=== PATIENT | female | born 1955 | race African-American/Black ===

== ENCOUNTER 2017-09-04 08:05 | Inpatient (IN) | payer MEDICAID ==
[~2017-09-04] VITALS: Ht 167.6 cm; Wt 137.0 kg
[2017-09-04] MEDS ORDERED: MORPHINE SULFATE 4 MG/ML CPJ (NOT FOR IM USE) IV STA (08:54)
[2017-09-04] MEDS ORDERED: ONDANSETRON HCL 4MG/2ML VIAL IV STA (08:54)
[2017-09-04 09:33] LABS: CHLORIDE 108 mEq/L (98-107)
[2017-09-04 09:35] LABS: INR 1.1; PROTHROMBIN TIME 11.4 sec (9.4-11.6)
[2017-09-04 09:38] LABS: CARBON DIOXIDE 27 mEq/L (21-32)
[2017-09-04 09:39] LABS: BASOPHILS % 0.2 % (0.0-2.0); EOSINOPHILS % 6.5 % (0.0-5.0); HEMATOCRIT. 38.1 % (36.0-48.0); HEMOGLOBIN. 12.6 g/dL (12.0-16.0); LYMPHOCYTES % 21.3 % (20.0-50.0); MEAN CORPUSCULAR HEMOGLOBIN 28.5 pg (28.0-32.0); MEAN CORPUSCULAR VOLUME 86.1 fL (81.0-99.0); MEAN PLATELET VOLUME 10.7 fl (7.4-10.4); MONOCYTES % 5.8 % (2.0-8.0); NEUTROPHILS % 66.2 % (40.0-76.0); PLATELET 259 x1000/uL (130-400); RED BLOOD CELL COUNT 4.43 mill/uL (4.2-5.4); RED CELL DISTRIBUTION WIDTH 16.5 % (11.6-14.6)
[2017-09-04] MEDS ORDERED: POTASSIUM CHLORIDE INJ 40 MEQ in DEXT 5% WATER 250 ML IV NR (10:00)
[2017-09-04] MEDS ORDERED: POTASSIUM CHLORIDE 20MEQ TABLET SR PO NR (10:00)
[2017-09-04 10:15] LABS: GLUCOSE URINE NEGATIVE (NEGATIVE); KETONES URINE NEGATIVE (NEGATIVE); LEUKOCYTE ESTERASE URINE NEGATIVE (NEGATIVE); NITRITE URINE NEGATIVE (NEGATIVE); OCCULT BLOOD URINE 2+ (NEGATIVE); PROTEIN URINE NEGATIVE (NEGATIVE); SPECIFIC GRAVITY URINE 1.008 (1.005-1.030); UROBILINOGEN URINE 0.2 E.U./dL (0.2-1.0)
[2017-09-04] MEDS ORDERED: ONDANSETRON HCL 4MG/2ML VIAL IV PRN (10:15)
[2017-09-04] MEDS ORDERED: DIPHENHYDRAMINE 50MG/ML VIAL IV PRN (10:15)
[2017-09-04] MEDS ORDERED: GUAIFENESIN 200MG/10ML SUGAR FREE UDC PO PRN (10:15)
[2017-09-04] MEDS ORDERED: CLONIDINE 0.1MG TABLET PO PRN (10:15)
[2017-09-04] MEDS ORDERED: HYDROCODONE/ACETAMINOPHEN 5/325MG TABLET PO PRN (10:15)
[2017-09-04] MEDS ORDERED: DOCUSATE SODIUM 100MG CAPSULE PO PRN (10:15)
[2017-09-04] MEDS ORDERED: ACETAMINOPHEN 325MG TABLET PO PRN ×2 (10:15→21:45)
[2017-09-04] MEDS ORDERED: ENOXAPARIN 40MG/0.4ML SYR SUBCUT SCH (10:15)
[2017-09-04] MEDS ORDERED: NA PHOS,M-B/NA PHOS,DI-BA ENEMA 118ML PR PRN (10:15)
[2017-09-04] MEDS ORDERED: MAGNESIUM/ALUMINUM HYDROXIDE/SIMETHICONE 30ML UDC PO PRN (10:15)
[2017-09-04] MEDS ORDERED: IPRATROPIUM/ALBUTEROL 0.5-3(2.5)MG/3ML NEB INH PRN (10:15)
[2017-09-04] MEDS ORDERED: LORAZEPAM 2MG/ML CPJ IV PRN (10:15)
[2017-09-04 10:52] LABS: CLARITY URINE CLEAR (CLEAR); COLOR URINE PALE YELLOW (YELLOW)
[2017-09-04 12:00] VITALS: BP 130/77
[2017-09-04 12:12] VITALS: BP 130/77
[2017-09-04] MEDS ORDERED: ALBU2.5V13 IH (12:43)
[2017-09-04] MEDS ORDERED: ASPI-1159 PO (12:49)
[2017-09-04] MEDS ORDERED: ATEN50TA PO (12:50)
[2017-09-04] MEDS ORDERED: CLON0.1T PO (12:50)
[2017-09-04] MEDS ORDERED: FURO20TA4 PO (12:51)
[2017-09-04] MEDS ORDERED: METF500T4 PO (12:52)
[2017-09-04] MEDS ORDERED: GABA-531 PO (12:52)
[2017-09-04] MEDS ORDERED: OMEP20CA10 PO (12:53)
[2017-09-04] MEDS ORDERED: MULT-1146 PO (12:53)
[2017-09-04] MEDS ORDERED: DEXT 5%/0.45% NACL KCL 10MEQ/L 1,000 ML IV SCH (13:00)
[2017-09-04] MEDS: ENOXAPARIN 30MG/0.3ML SYR SUBCUT SCH ×2 (13:40→22:58)
[2017-09-04 15:32] LABS: TROPONIN I 0.26 ng/mL (0.00-0.04)
[2017-09-04 16:00] VITALS: BP 128/67
[2017-09-04] MEDS: HYDROMORPHONE HCL/PF 2MG/ML CPJ IV PRN ×2 (16:40→23:02)
[2017-09-04 20:00] VITALS: BP 145/75
[2017-09-04 23:26] LABS: TROPONIN I 0.34 ng/mL (0.00-0.04)
[2017-09-05] VITALS: BP 140/80
[2017-09-05] MEDS ORDERED: POTASSIUM CHLORIDE 20MEQ TABLET SR PO SCH
[2017-09-05 04:00] VITALS: BP 142/77
[2017-09-05] MEDS: HYDROMORPHONE HCL/PF 2MG/ML CPJ IV PRN (05:27)
[2017-09-05] MEDS: BLOOD SUGAR DIAGNOSTIC STRIP TEST SCH ×4 (07:40→20:39)
[2017-09-05 07:44] LABS: BASOPHILS % 0.3 % (0.0-2.0); EOSINOPHILS % 5.4 % (0.0-5.0); HEMATOCRIT. 37.6 % (36.0-48.0); HEMOGLOBIN. 12.4 g/dL (12.0-16.0); LYMPHOCYTES % 26.1 % (20.0-50.0); MEAN PLATELET VOLUME 10.6 fl (7.4-10.4); NEUTROPHILS % 62.2 % (40.0-76.0); PLATELET 254 x1000/uL (130-400); RED BLOOD CELL COUNT 4.42 mill/uL (4.2-5.4)
[2017-09-05] MEDS ORDERED: DEXTROSE 50% WATER 50ML SYRINGE IV PRN (07:45)
[2017-09-05 08:00] VITALS: BP 132/72
[2017-09-05 08:00] LABS: CARBON DIOXIDE 26 mEq/L (21-32); CHLORIDE 109 mEq/L (98-107); HDL CHOLESTEROL 44 mg/dL (40-59); LDL CHOLESTEROL 43 mg/dL (5-100); T4 FREE 1.31 ng/dL (0.76-1.46)
[2017-09-05] MEDS: INSULIN LISPRO 100 UNITS/ML SUBCUT SCH ×4 (08:10→20:38)
[2017-09-05] MEDS: OMEPRAZOLE 20MG CAPSULE EXTENDED RELEASE PO SCH (08:53)
[2017-09-05] MEDS: MULTIVITAMINS,THER W-MINERALS TABLET PO SCH (08:53)
[2017-09-05] MEDS: METFORMIN HCL 500MG TABLET PO SCH (08:54)
[2017-09-05] MEDS: ASPIRIN 81MG EC TABLET PO SCH (08:54)
[2017-09-05] MEDS: ENOXAPARIN 30MG/0.3ML SYR SUBCUT SCH ×2 (08:57→20:39)
[2017-09-05] MEDS ORDERED: MEDICATION NOT ON FORMULARY EA (Multivitamin (Multi Vitamin Daily) 1 EACH) PO SCH (09:00)
[2017-09-05] MEDS ORDERED: FUROSEMIDE 20MG TABLET PO SCH (09:00)
[2017-09-05] MEDS: POTASSIUM CHLORIDE 20MEQ TABLET SR PO SCH ×3 (09:04→16:49)
[2017-09-05] MEDS: ATENOLOL 50 MG TABLET PO SCH (09:06)
[2017-09-05] MEDS: GABAPENTIN 300MG CAPSULE PO SCH ×3 (09:06→16:57)
[2017-09-05] MEDS: HYDROCODONE/ACETAMINOPHEN 10/325MG TABLET PO PRN ×3 (09:09→20:38)
[2017-09-05 09:57] LABS: PHOSPHORUS 2.9 mg/dL (2.5-4.9); T4 FREE 1.29 ng/dL (0.76-1.46)
[2017-09-05 12:00] VITALS: BP 128/69
[2017-09-05 16:00] VITALS: BP 148/60
[2017-09-05 16:23] LABS: CREATINE KINASE MB FRACTION 10.5 ng/mL (0.5-3.6)
[2017-09-05 16:34] LABS: TROPONIN I 0.45 ng/mL (0.00-0.04)
[2017-09-05] MEDS: CLONIDINE 0.1MG TABLET PO SCH (16:50)
[2017-09-05 20:00] VITALS: BP 146/79
[2017-09-05 20:42] LABS: *AMPHETAMINES SCREEN URINE NEGATIVE (NEGATIVE); *BARBITURATES SCREEN URINE NEGATIVE (NEGATIVE); *BENZODIAZEPINES SCREEN URINE NEGATIVE (NEGATIVE); *COCAINE SCREEN URINE NEGATIVE (NEGATIVE); CANNABINOID URINE SCREEN NEGATIVE (NEGATIVE); CHLORIDE URINE RANDOM 46 mEq/L; METHADONE URINE SCREEN NEGATIVE (NEGATIVE); OPIATES URINE SCREEN PRESUMTIVE POSITIVE (NEGATIVE); PHENCYCLIDINE URINE SCREEN NEGATIVE (NEGATIVE)
[2017-09-05] MEDS ORDERED: DEXT 5%/0.45% NACL KCL 10MEQ/L 1,000 ML IV SCH (22:00)
[2017-09-06] VITALS: BP 145/76
[2017-09-06 00:02] LABS: CREATINE KINASE MB FRACTION 10.3 ng/mL (0.5-3.6)
[2017-09-06 00:48] LABS: TROPONIN I 0.44 ng/mL (0.00-0.04)
[2017-09-06] MEDS: HYDROCODONE/ACETAMINOPHEN 10/325MG TABLET PO PRN ×4 (03:37→20:22)
[2017-09-06 04:00] VITALS: BP 154/78
[2017-09-06 06:27] LABS: BASOPHILS % 0.7 % (0.0-2.0); EOSINOPHILS % 6.8 % (0.0-5.0); HEMATOCRIT. 41.5 % (36.0-48.0); HEMOGLOBIN. 13.6 g/dL (12.0-16.0); LYMPHOCYTES % 32.9 % (20.0-50.0); MEAN CORPUSCULAR HEMOGLOBIN 28.2 pg (28.0-32.0); MEAN CORPUSCULAR VOLUME 86.1 fL (81.0-99.0); MONOCYTES % 6.3 % (2.0-8.0); NEUTROPHILS % 53.3 % (40.0-76.0); RED BLOOD CELL COUNT 4.82 mill/uL (4.2-5.4); RED CELL DISTRIBUTION WIDTH 17.1 % (11.6-14.6)
[2017-09-06 07:17] LABS: CHLORIDE 110 mEq/L (98-107)
[2017-09-06] MEDS: BLOOD SUGAR DIAGNOSTIC STRIP TEST SCH ×4 (07:25→20:25)
[2017-09-06] MEDS: INSULIN LISPRO 100 UNITS/ML SUBCUT SCH ×4 (07:25→20:25)
[2017-09-06] MEDS: OMEPRAZOLE 20MG CAPSULE EXTENDED RELEASE PO SCH ×2 (07:40→09:47)
[2017-09-06 07:44] LABS: CARBON DIOXIDE 24 mEq/L (21-32); CREATINE KINASE MB FRACTION 15.2 ng/mL (0.5-3.6); TROPONIN I 0.36 ng/mL (0.00-0.04)
[2017-09-06 08:00] VITALS: BP 156/85
[2017-09-06] MEDS ORDERED: POTASSIUM CHLORIDE 20MEQ TABLET SR PO SCH (08:15)
[2017-09-06] MEDS: METFORMIN HCL 500MG TABLET PO SCH ×2 (08:18→09:47)
[2017-09-06] MEDS: ENOXAPARIN 30MG/0.3ML SYR SUBCUT SCH ×3 (08:19→20:26)
[2017-09-06 08:46] LABS: CREATINE KINASE 5609 IU/L (26-192)
[2017-09-06] MEDS: ASPIRIN 81MG EC TABLET PO SCH ×2 (08:50→09:48)
[2017-09-06] MEDS ORDERED: LIDOCAINE HCL 1% 20ML VIAL (Pyxis) INJ ONE (08:50)
[2017-09-06] MEDS: ATENOLOL 50 MG TABLET PO SCH ×2 (08:51→09:47)
[2017-09-06] MEDS: MULTIVITAMINS,THER W-MINERALS TABLET PO SCH ×2 (08:51→09:47)
[2017-09-06] MEDS: POTASSIUM CHLORIDE 20MEQ TABLET SR PO SCH ×4 (08:51→18:22)
[2017-09-06] MEDS: GABAPENTIN 300MG CAPSULE PO SCH ×3 (08:51→12:55)
[2017-09-06] MEDS ORDERED: IOHEXOL-300 100 ML BOTTLE ONE (08:51)
[2017-09-06] MEDS ORDERED: DEXT 5% WATER + KCL 40MEQ/L 1,000 ML IV SCH (09:00)
[2017-09-06] MEDS ORDERED: POTASSIUM CHLORIDE INJ 40 MEQ in DEXT 5% WATER 250 ML IV ONE (09:00)
[2017-09-06] MEDS ORDERED: SODIUM BICARBONATE IV SCH (10:30)
[2017-09-06] MEDS ORDERED: DEXTROSE 5% IV SCH (10:30)
[2017-09-06] MEDS ORDERED: POTASSIUM CHLORIDE IV SCH (10:30)
[2017-09-06] MEDS ORDERED: WATER IV SCH (10:30)
[2017-09-06 11:44] LABS: PLATELET 226 x1000/uL (130-400)
[2017-09-06 12:00] VITALS: BP 143/80
[2017-09-06] MEDS ORDERED: POTASSIUM CHLORIDE INJ 40 MEQ in DEXT 5% WATER 250 ML IV NR ×2 (14:00→21:00)
[2017-09-06 16:00] VITALS: BP 131/75
[2017-09-06] MEDS ORDERED: POTASSIUM CHLORIDE 20MEQ TABLET SR PO NR (18:15)
[2017-09-06] MEDS: CLONIDINE 0.1MG TABLET PO SCH (18:22)
[2017-09-06] MEDS ORDERED: POTASSIUM CHLORIDE INJ 40 MEQ in SODIUM CHLORIDE 0.45% 1,000 ML IV SCH (19:00)
[2017-09-06] MEDS ORDERED: POTASSIUM CHLORIDE INJ 60 MEQ in SODIUM CHLORIDE 0.9% 500 ML IV NR (19:30)
[2017-09-06 19:58] VITALS: BP 135/73
[2017-09-07] VITALS: BP 138/72
[2017-09-07] MEDS ORDERED: POTASSIUM CHLORIDE INJ 60 MEQ in SODIUM CHLORIDE 0.9% 500 ML IV SCH (01:00)
[2017-09-07] MEDS: HYDROCODONE/ACETAMINOPHEN 10/325MG TABLET PO PRN ×2 (01:48→06:52)
[2017-09-07 04:00] VITALS: BP 145/73
[2017-09-07 05:58] LABS: BASOPHILS % 0.4 % (0.0-2.0); EOSINOPHILS % 10.7 % (0.0-5.0); HEMATOCRIT. 38.6 % (36.0-48.0); HEMOGLOBIN. 12.5 g/dL (12.0-16.0); LYMPHOCYTES % 36.8 % (20.0-50.0); MEAN CORPUSCULAR VOLUME 86.8 fL (81.0-99.0); MEAN PLATELET VOLUME 10.9 fl (7.4-10.4); MONOCYTES % 8.1 % (2.0-8.0); PLATELET 238 x1000/uL (130-400); RED BLOOD CELL COUNT 4.45 mill/uL (4.2-5.4); RED CELL DISTRIBUTION WIDTH 17.5 % (11.6-14.6)
[2017-09-07 06:51] LABS: CHLORIDE 114 mEq/L (98-107)
[2017-09-07 06:57] LABS: CARBON DIOXIDE 27 mEq/L (21-32); PHOSPHORUS 1.6 mg/dL (2.5-4.9)
[2017-09-07 08:00] VITALS: BP 157/77
[2017-09-07] MEDS: INSULIN LISPRO 100 UNITS/ML SUBCUT SCH (08:10)
[2017-09-07] MEDS: BLOOD SUGAR DIAGNOSTIC STRIP TEST SCH (08:17)
[2017-09-07] MEDS: GABAPENTIN 300MG CAPSULE PO SCH (08:22)
[2017-09-07] MEDS: OMEPRAZOLE 20MG CAPSULE EXTENDED RELEASE PO SCH (08:22)
[2017-09-07] MEDS: MULTIVITAMINS,THER W-MINERALS TABLET PO SCH (08:22)
[2017-09-07] MEDS: METFORMIN HCL 500MG TABLET PO SCH (08:22)
[2017-09-07] MEDS: ASPIRIN 81MG EC TABLET PO SCH (08:22)
[2017-09-07] MEDS: ENOXAPARIN 30MG/0.3ML SYR SUBCUT SCH (08:23)
[2017-09-07] MEDS: ATENOLOL 50 MG TABLET PO SCH (08:23)
[2017-09-07] MEDS: POTASSIUM CHLORIDE 20MEQ TABLET SR PO SCH (08:23)
[2017-09-07 08:55] LABS: CREATINE KINASE 6935 IU/L (26-192)
[2017-09-07] MEDS ORDERED: POTASSIUM PHOS,M-BASIC-D-BASIC 20 MMOL in DEXT 5% WATER 243.3333 ML IV NR (09:00)
== END 2017-09-07 11:33 | disposition left against medical advice (07) | DRG 52 ==
LOC: ER 08:20 → EDBEDREQ 10:13 → ENRESERV 10:20 → 7WST 11:18
PROVIDERS: ADMIT Internal Medicine; ATTEND Internal Medicine
PROC: 02HV33Z Insertion of Infusion Device into Superior Vena Cava, Percutaneous Approach (ICD-10-PCS; principal; 2017-09-06)
PROC: B548ZZA Ultrasonography of Superior Vena Cava, Guidance (ICD-10-PCS; 2017-09-06)
DX: G93.41 Metabolic encephalopathy (principal); I21.4 Non-ST elevation (NSTEMI) myocardial infarction; N17.9 Acute kidney failure, unspecified; E46 Unspecified protein-calorie malnutrition; M62.82 Rhabdomyolysis; I50.9 Heart failure, unspecified; I11.0 Hypertensive heart disease with heart failure; Z68.42 Body mass index [BMI] 45.0-49.9, adult; E87.5 Hyperkalemia; T50.2X5A Adverse effect of carbonic-anhydrase inhibitors, benzothiadiazides and other diuretics, initial encounter; T50.0X5A Adverse effect of mineralocorticoids and their antagonists, initial encounter; T50.1X5A Adverse effect of loop [high-ceiling] diuretics, initial encounter; E87.6 Hypokalemia; E86.0 Dehydration; E11.9 Type 2 diabetes mellitus without complications; E66.9 Obesity, unspecified; E78.5 Hyperlipidemia, unspecified; G89.29 Other chronic pain; I25.10 Atherosclerotic heart disease of native coronary artery without angina pectoris; M54.40 Lumbago with sciatica, unspecified side; Z79.82 Long term (current) use of aspirin; Z79.84 Long term (current) use of oral hypoglycemic drugs; Z79.899 Other long term (current) drug therapy; Y92.89 Other specified places as the place of occurrence of the external cause
CPT/HCPCS: 36415; 36569; 71010; 72131; 76937; 80048; 80053; 80061; 80305; 81001; 82436; 82550; 82553; 82962; 83036; 83735; 83880; 83930; 83935; 84100; 84132; 84133; 84244; 84439; 84443; 84484; 85025; 85379; 85610; 93005; 93306; 93970; 96365; 96375; 97110; 97116; 97163; 97166; 97530; 97535; 99291; C1725; J1170; J1644; J1650; J1815; J2270; J2405; J3480; J3490; J7040; J7060; J7070; Q9967